=== PATIENT | female | born 1965 | race Two or more races ===

== ENCOUNTER 2025-06-03 11:52 | Emergency (ER) | payer MEDICAID, SELFPAY ==
[2025-06-03 12:15] VITALS: BP 120/71; PULSE 85; RESP 18; TEMP 36.3; O2SAT 99
[2025-06-03 12:17] VITALS: BMI 32.3
--- NOTE | 2025-06-03 12:55 | PD.EDRME ---
Rapid Medical Screening Exam RME Arrival date/time: 06/03/25 11:52 Chief Complaint: Nausea/Vomiting/Diarrhea Time Seen by Provider: 06/03/25 12:44 Vital signs: Vital Signs Temperature 97.4 F 06/03/25 12:15 Pulse Rate 85 06/03/25 12:15 Respiratory Rate 18 06/03/25 12:15 Blood Pressure 120/71 06/03/25 12:15 Pulse Oximetry (%) 99 06/03/25 12:15 Oxygen Delivery Method Room Air 06/03/25 12:15 RME Narrative: 59yo female with hx of lap tyesha and hx of kidney stones with n/v since this am. States pain is epigastric and she is vomiting. no hx of dm. no fever. no cough Exam: epigastric ttp Clinical Impression: viral gastro, influenza, kidney stones
--- NOTE | 2025-06-03 13:05 | EKG_ITS ---
[facility] Test Date: 2025-06-03 Pat Name: HENNY HDEZ Department: Room: - Gender: Female International Sales Manager: : 1965 Requested By: Stephenie Patel Order Number: [id number] Reading MD: Stephenie Patel Measurements Intervals [place] Rate: 82 P: 66 AR: 138 QRS: 15 QRSD: 94 T: 39 QT: 376 QTc: 440 Interpretive Statements SINUS RHYTHM Compared to ECG 11/01/2020 11:55:47 No significant changes /store/S0/[id number]/ecg/[id number].pdf
--- NOTE | 2025-06-03 13:05 | XR_ITS ---
EXAMINATION: PA lateral chest 2 views TECHNIQUE: Upright PA lateral chest 2 views Date and time: June 03, 2025, 1315 hours INDICATIONS: Epigastric pain and vomiting today. FINDINGS: Normal heart size No aspiration pneumonia. Moderate osteopenia IMPRESSION: No aspiration pneumonia
--- NOTE | 2025-06-03 13:05 | XR_ITS ---
Examination: CT abdomen and pelvis without contrast. Coronal 3-D reconstructions. Sagittal 2-D reconstructions. Date and time of exam: June 03, 2025, 1356 hours, comparison June 05, 2015 INDICATIONS: Nausea vomiting beginning 7:00 a.m. this morning CTDI: vol (mGy): 6.45 DLP: (mGycm): 273 Technique: Axial images of the abdomen have been obtained, 3 mm slice thickness Intravenous contrast material has not been administered. Low dose protocols were performed. One or more of the following dose reduction techniques were used; automated exposure control, adjustment of the mA and/or KV according to patient size, use of iterative reconstruction technique. Findings: No focal liver or splenic lesions Absent gallbladder No pancreatic mass Large staghorn left renal calculi with mild left hydronephrosis but no ureteral calculi Aortic calcification No bowel obstruction Normal appendix No diverticulitis No pelvic mass No bladder mass or bladder calculi Prominent osteopenia IMPRESSION: Large staghorn left renal calculi with mild left hydronephrosis but no ureteral calculi Normal appendix No bowel obstruction or diverticulitis No bladder mass or bladder calculi
[2025-06-03 13:35] LABS: Base Excess, Venous 0 (-3-3); Lactate (Lactic Acid) 1.4 mMol/L (0.4-2.0); O2 Saturation, Venous 54 % (96-97); PCO2, Venous 47 mmHg (36-56); PO2, Venous 29 mmHg (15-58); pH, Venous 7.35 (7.33-7.66)
[2025-06-03 13:40] LABS: Basophils # (Auto) 0.0 Thou/mm3 (0.0-0.2); Basophils % (Auto) 0 % (0-2.5); Eosinophils # (Auto) 0.0 Thou/mm3 (0.0-0.5); Eosinophils % (Auto) 0 % (0-10); Hematocrit 42.0 % (36.0-46.0); Hemoglobin 13.9 g/dL (12.0-16.0); Immature Granulocytes Auto 0.04 Thou/mm3 (0.00-0.00); Lymphocytes # (Auto) 1.2 Thou/mm3 (1.0-4.8); Lymphocytes % (Auto) 10 % (10-50); Mean Corpuscular HGB Conc 33.1 g/dl (31.0-37.0); Mean Corpuscular Hemoglobin 29.9 pg (25.0-35.0); Mean Corpuscular Volume 90 fL (80-100); Monocytes # (Auto) 0.5 Thou/mm3 (0.0-0.8); Monocytes % (Auto) 4 % (0-12); Neutrophils # (Auto) 10.6 Thou/mm3 (1.8-7.7); Neutrophils % (Auto) 86 % (37-80); Nucleated Red Blood Cell # 0.00 Thou/mm3 (0.00-0.00); Nucleated Red Blood Cell % 0 /100 WBC (0); Platelet Count 279 Thou/mm3 (140-440); RDW Standard Deviation 42.0 fL (36.4-46.3); Red Blood Count 4.65 Miln/mm3 (4.00-5.20); White Blood Count 12.3 Thou/mm3 (3.6-11.0)
[2025-06-03 13:56] LABS: B-Type Natriuretic Peptide < 20 pg/mL (0-100)
[2025-06-03 13:57] LABS: Alanine Aminotransferase 35 U/L (10-49); Albumin, Serum 5.1 gm/dL (3.5-5.0); Albumin/Globulin Ratio 1.7 (1.2-2.2); Alkaline Phosphatase 85 U/L (46-116); Anion Gap 9 (7-16); Aspartate Amino Transferase 32 U/L (0-34); BUN/Creatinine Ratio 11 Ratio (12-20); Bilirubin,Total 0.3 mg/dL (0.3-1.2); Blood Urea Nitrogen 8 mg/dL (9-23); Calcium 10.3 mg/dL (8.3-10.6); Calcium (Corrected) 10.3 mg/dL (8.5-10.1); Carbon Dioxide 26.2 mMol/L (20.0-31.0); Chloride 106 mMol/L (98-107); Creatinine (Component) 0.7 mg/dL (0.6-1.3); Estimated Creatinine Clearance 63.6 mL/min (>60); Globulin 3.0 gm/dL (2.3-3.5); Glucose 115 mg/dL (74-106); Lipase 35 U/L (12-53); Osmolality,Calculated 280 (275-295); Potassium 4.4 mMol/L (3.4-5.1); Sodium 141 mMol/L (136-145); Total Protein 8.1 gm/dL (5.7-8.2); Troponin I < 0.002 ng/mL (0.0-0.045); eGFR > 60 See Note
--- NOTE | 2025-06-03 14:36 | EDNOTE_ITS ---
ED Dizzyness RME/HPI General Chief Complaint: Nausea/Vomiting/Diarrhea Stated Complaint: DIZZY/VOMITING SINCE 7AM Time Seen by Provider: 06/03/25 12:44 Arrival date/time: 06/03/25 11:52 Limitations: no limitations RME / HPI RME / HPI Narrative: 59yo female with hx of lap tyesha and hx of kidney stones with n/v since this am. States pain is epigastric and she is vomiting. no hx of dm. no fever. no cough DR. BECKFORD MAIN ED EVALUATION: 59-year-old female presents with vertigo for 1 day. She reports nausea, vomiting, and dizziness for the past day. She denies motor deficits. She reports bilateral tinnitus. No other complaints. Related Data Previous Rx's ?Medication ?Instructions ?Recorded dexamethasone 4 mg tablet 4 mg PO BID 5 days #10 tabs 06/03/25 hydrochlorothiazide 12.5 mg capsule 12.5 mg PO QDAY #1 0 caps 06/03/25 meclizine 25 mg tablet (Dramamine 25 mg PO TID PRN mot ion sickness 06/03/25 (meclizine)) #30 tabs ondansetron HCl 4 mg tablet 4 mg PO Q8H PRN nausea and 06/03/25 vomiting 7 days #30 tabs Allergies Allergy/AdvReac Type Severity Reaction Status Date / Time morphine Allergy Intermediate VOMITING Verified 11/02/20 10:07 hydrocodone Allergy Unknown vomiting Verified 11/02/20 10:07 Penicillins Allergy Unknown rash Verified 11/02/20 10:07 Review of Systems Review of Systems Systems Reviewed: All systems reviewed, normal except as documented Past Medical History Past Medical History NEUROLOGIC: Positive Migraine (HAD INJ DONE FOR IT YEARS AGO) GASTROINTESTINAL: Positive Gall Bladder Disease (X 1 YEAR AGO DX), Gastroesophageal Reflux Disease (TAKES OTC) and Obesity GENITOURINARY: Positive Genitourinary Disorders and Kidney Stones (X 10 YEAR AGO, RECURRENT) MUSCULOSKELETAL: Positive Musculoskeletal Disorders and Arthritis ENT: Positive Glaucoma (DOES NOT TAKE MEDS) OTHER HISTORY: Positive Hospitalization (DURING CHILDBIRTH) and Chicken Pox Surgical History SURGICAL: Positive Oral Surgery (HAD ALL TEETH REMOVED 5 YEARS AGO.), Tubal Ligation (11 YEARS AGO) and Section (4) Social History SMOKING STATUS: Never smoker SUBSTANCE USE: does not use ALCOHOL: Never ED Exam General Limitations: Present no limitations General appearance: Present alert and in no apparent distress Head Head exam: Present atraumatic, normocephalic and normal inspection Eye Eye exam: Present normal appearance, PERRL, EOMI and nystagmus (nystagmus present bilaterally) ENT ENT exam: Present normal exam, normal oropharynx and mucous membranes moist Neck Neck exam: Present normal inspection, full ROM and trachea midline Chest Chest inspection: Present normal inspection and symmetric chest wall rise Respiratory Respiratory exam: Present normal lung sounds bilaterally Cardiovascular Cardiovascular exam: Present regular rate, normal rhythm and normal heart sounds Abdominal Exam Abdominal exam: Present soft and normal bowel sounds Extremities Exam Extremities exam: Present normal inspection and full ROM Back Exam Back exam: Present normal inspection and full ROM Neurological Exam Neurological exam: Present alert, oriented X3, CN II-XII intact and other (no motor deficits, positive head tilt test, negative squint test) Psychiatric Psychiatric exam: Present normal affect and normal mood Skin Skin exam: Present warm, dry, intact and normal color Course Quality Measures none Orders Category Date Time Status EKG (ED ONLY) *Do not use* NOW Care 06/03/25 13:[address] abdomen pelvis wo con Stat Exams 06/03/25 13:05 Completed EKG (ED Only) Stat Exams 06/03/25 13:05 Ordered XR chest 2V Stat Exams 06/03/25 13:05 Completed BNP [B-Type Natriuretic Peptide] Stat Lab 06/03/25 13:28 Completed CBC Stat Lab 06/03/25 13:28 Completed CMP [Comprehensive Metabolic Panel] Stat Lab 06/03/25 13:28 Completed Drug Screen,Urine Stat Lab 06/03/25 14:41 Ordered Influenza A & B Rapid Panel Stat Lab 06/03/25 14:41 Ordered Lactic Acid [Lactate (Lactic Acid)] Stat Lab 06/03/25 13:28 Completed Lipase Stat Lab 06/03/25 13:28 Completed Troponin I Stat Lab 06/03/25 13:28 Completed UA [Urinalysis] Stat Lab 06/03/25 14:41 Ordered VBG [Venous Blood Gas] Stat Lab 06/03/25 13:28 Completed Dexamethasone Inj [Decadron Inj] Med 06/03/25 14:37 Discontinued 10 mg IM X1 ONE Meclizine HCl [Antivert] Med 06/03/25 14:37 Discontinued 25 mg PO X1 ONE Ondansetron Odt [Zofran Odt] Med 06/03/25 14:37 Discontinued 4 mg PO X1 ONE hydroCHLOROthiazide Med 06/03/25 14:37 Discontinued 12.5 mg PO X1 ONE Vital Signs Vital signs: Vital Signs Temperature 97.4 F 06/03/25 12:15 Pulse Rate 85 06/03/25 12:15 Respiratory Rate 18 06/03/25 12:15 Blood Pressure 120/71 06/03/25 12:15 Pulse Oximetry (%) 99 06/03/25 12:15 Oxygen Delivery Method Room Air 06/03/25 12:15 Dizziness MDM Narrative MDM Narrative:: I, Baylee Vazquez am scribing for and in the presence of Dr. Beckford. 59-year-old female with 1 day of vertigo, nausea, vomiting, dizziness, bilateral nystagmus, and bilateral tinnitus. Exam normal aside from vestibular findings. Differential diagnoses include benign paroxysmal positional vertigo, vestibular neuritis, and labyrinthitis. Impression is vertigo. EKG normal: EKG interpreted by provider shows sinus rhythm, rate 82, no axis deviation, no ischemia, and normal intervals. Plan is to give Meclizine, Zofran, dexamethasone, and hydrochlorothiazide and then discharge home. Patient stable for discharge after treatment. Patient data [place] [facility] [place] Clinical information provided by:: patient Social determinants that could affect healthcare access:: none Patient has the following chronic illnesses:: Migraines How is presenting disease/condition affected by chronic disease/condition?: exacerbated by Evaluation data The following diagnostics were reviewed and interpreted by me:: lab results, radiology exam(s) and EKG tracing(s) (EKG#1: Interpreted by me: sinus rhythm, rate 82, no axis deviation, no ischemia, normal intervals ) Lab and/or radiology exams considered but not ordered:: none Interpretation Summary: See MDM narrative above. RADIOLOGY Procedure(s): XR chest 2V Accession Number(s): [id number] cc: Stephenie Patel PA-C; Ten Lanza MD~ EXAMINATION: PA lateral chest 2 views TECHNIQUE: Upright PA lateral chest 2 views Date and time: June 03, 2025, 1315 hours INDICATIONS: Epigastric pain and vomiting today. FINDINGS: Normal heart size No aspiration pneumonia. Moderate osteopenia IMPRESSION: No aspiration pneumonia Dictated By: Ten Lanza MD Procedure(s): CT abdomen pelvis wo [facility] Accession Number(s): [id number] cc: Stephenie Patel PA-C; Daniel Soler MD; Ten Lanza MD~ Examination: CT abdomen and pelvis without contrast. Coronal 3-D reconstructions. Sagittal 2-D reconstructions. Date and time of exam: June 03, 2025, 1356 hours, comparison June 05, 2015 INDICATIONS: Nausea vomiting beginning 7:00 a.m. this morning CTDI: vol (mGy): 6.45 DLP: (mGycm): 273 Technique: Axial images of the abdomen have been obtained, 3 mm slice thickness Intravenous contrast material has not been administered. Low dose protocols were performed. One or more of the following dose reduction techniques were used; automated exposure control, adjustment of the mA and/or KV according to patient size, use of iterative reconstruction technique. Findings: No focal liver or splenic lesions Absent gallbladder No pancreatic mass Large staghorn left renal calculi with mild left hydronephrosis but no ureteral calculi Aortic calcification No bowel obstruction Normal appendix No diverticulitis No pelvic mass No bladder mass or bladder calculi Prominent osteopenia IMPRESSION: Large staghorn left renal calculi with mild left hydronephrosis but no ureteral calculi Normal appendix No bowel obstruction or diverticulitis No bladder mass or bladder calculi Dictated By: Ten Lanza MD Medications / Prescriptions Medications or Prescriptions considered but not ordered:: none Medication administrations:: Medication Administration History Discontinued Medications Dexamethasone Sodium Phosphate (Dexamethasone Sod Phos Inj 10 Mg/Ml Vial) 10 mg IM X1 ONE Stop: 06/03/25 14:38 Hydrochlorothiazide (Hydrochlorothiazide 12.5 Mg Capsule) 12.5 mg PO X1 ONE Stop: 06/03/25 14:38 Meclizine HCl (Meclizine Hcl 25 Mg Tablet) 25 mg PO X1 ONE Stop: 06/03/25 14:38 Ondansetron HCl (Ondansetron Odt 4 Mg Tabrap) 4 mg PO X1 ONE; Protocol Stop: 06/03/25 14:38 see above Consultations Consultation(s) initiated? (list below): No Diagnosis Dizziness Differential Diagnosis: other (benign paroxysmal positional vertigo, vestibular neuritis, and labyrinthitis) Most likely diagnosis given after review of the tests above:: Peripheral vertigo Acute labyrinthitis Admission Indicated Admission indicated?: not indicated Admission Request Was there a request for admission?: No Disposition Plan Disposition Plan: Discharge Discharge Attestation Discharge Attestation: The patient and all family members were given an opportunity to ask questions and understood the discharge instructions. Discharge instructions specifically effects, indications for sooner follow up or return to the emergency department, and the expected course of current diagnosis. Patient condition: Stable Discharge Plan Plan Patient Disposition: HOME (Self Care) Patient condition on transfer: Stable Prescriptions/Referrals Prescriptions/Med Rec: New meclizine [Dramamine (meclizine)] 25 mg tablet 25 mg PO TID PRN (Reason: motion sickness) Qty: 30 0RF dexamethasone 4 mg tablet 4 mg PO BID 5 Days Qty: 10 0RF ondansetron HCl 4 mg tablet 4 mg PO Q8H PRN (Reason: nausea and vomiting) 7 Days Qty: 30 0RF hydrochlorothiazide 12.5 mg capsule 12.5 mg PO QDAY Qty: 10 0RF Referrals: Daniel Soler MD [Primary Care Provider, Family Practice] - In 1 week Problem List Clinical Impression: Peripheral vertigo, Acute labyrinthitis Patient/Caregiver Discharge Instructions Discharge Activity: walk with walker only Education Materials: Anatomy of the Inner Ear, Dizziness Balance Probs Fainting, Vertigo Medicine Tx, Dizziness Vertigo and Balance ..., Vestibular Rehabilitation Therapy, ED BPV Vertigo, ED Labyrinthitis Print Language: Welsh Stand Alone Forms: Ginny Award Info., Patient Portal Info Letter
[2025-06-03 14:49] LABS: Collection Type, Urine Clean Catch
[2025-06-03 15:04] LABS: Amphetamine/Methamp Scrn,U Negative (Negative); Barbiturate Screen,Urine Negative (Negative); Benzodiazepines Screen,Urine Negative (Negative); Benzoylecgonine Screen, Ur Negative (Negative); Fentanyl Screen,Urine Negative (Negative); Opiate Screen,Urine Negative (Negative); THC Screen,Urine Negative (Negative)
[2025-06-03 15:06] LABS: Bilirubin,Urine Negative (Negative); Blood,Urine Negative (Negative); Budding Yeast,Urine Present; Clarity,Urine Turbid (Clear/Hazy); Color,Urine Lt-Yellow (Lt Yel-Yel); Glucose, Urine Negative (Negative); Ketones,Urine Negative (Negative); Leukocyte Esterase,Urine Positive (Negative); Nitrite,Urine Negative (Negative); PH,Urine 6.5 (5.0-7.0); Protein,Urine 1+ (Neg - Trace); RBC,Urine 9 /hpf (0-3); Specific Gravity,Urine 1.017 (1.001-1.035); Squamous Epithelial Cell,Urine 3 /hpf (0-5); Urobilinogen,Urine Negative mg/dL (0.0-1.0); WBC,Urine 28 /hpf (0-5)
[2025-06-03 15:07] VITALS: BP 120/71; PULSE 85
[2025-06-03] MEDS: ONDANSETRON ODT 4 MG TABRAP PO (15:08)
[2025-06-03] MEDS: DEXAMETHASONE SOD PHOS INJ 10 MG/ML VIAL IM (15:08)
[2025-06-03] MEDS: MECLIZINE HCL 25 MG TABLET PO (15:08)
== END 2025-06-03 16:02 | disposition home or self-care (01) ==
PROVIDERS: Physician Assistant; Emergency Provider Emergency Medicine; PCP Family Medicine
DX: H81.393 Other peripheral vertigo, bilateral (principal); H83.03 Labyrinthitis, bilateral; N13.2 Hydronephrosis with renal and ureteral calculous obstruction; R10.13 Epigastric pain; R11.2 Nausea with vomiting, unspecified
CPT/HCPCS: 36415; 71046; 74176; 80053; 80307; 81001; 82803; 83605; 83690; 83880; 84484; 85025; 87502; 93005; 96372; 99284; J1100; Q0162; A9270